=== PATIENT | female | born 1955 | race Caucasian/White ===

== ENCOUNTER 2023-09-25 11:17 | Emergency (ER) | payer OTHER, SELFPAY ==
[2023-09-25 11:18] VITALS: BP 147/100
[2023-09-25 13:07] VITALS: BMI 25.7
[2023-09-25 13:34] LABS: % Basophils 1.2 % (0-2); % Immature Granulocytes 0.3 % (0-0.5); % Lymphocytes 21.5 % (20.5-51.1); % Monocytes 8.2 % (1.7-9.3); % Neutrophils 65.8 % (42.2-75.2); Absolute Basophils 0.1 10^3/uL (0-0.2); Absolute Eosinophils 0.2 10^3/uL (0-0.7); Absolute Lymphocytes 1.6 10^3/uL (1.2-3.4); Absolute Monocytes 0.6 10^3/uL (0.1-0.6); Absolute Neutrophils 4.8 10^3/uL (1.4-6.5); Hematocrit 40.1 % (37.0-47.0); Hemoglobin 13.6 g/dL (12.0-16.0); Mean Corp Hgb Conc. 33.9 g/dL (33.0-37.0); Mean Corpuscular Hgb 32.5 pg (27.0-31.0); Mean Corpuscular Volume 95.9 fL (81.0-99.0); Mean Platelet Volume 9.8 fL (7.4-10.4); Nucleated Red Blood Cells % 0 %; Platelet Count 221 10^3/uL (130-400); Red Blood Cell Count 4.18 10^6/uL (4.20-5.40); White Blood Cell Count 7.3 10^3/uL (4.8-10.8)
[2023-09-25 13:48] LABS: ALT (SGPT) 18 U/L (0-35); AST (SGOT) 26 U/L (14-36); Albumin 4.1 g/dl (3.5-5.0); Alkaline Phosphatase 63 U/L (38-126); Blood Urea Nitrogen 15 mg/dl (7-17); Calcium 9.8 mg/dl (8.4-10.2); Carbon Dioxide 27 mmol/L (22-30); Chloride 107 mmol/L (98-107); Estimated Creatinine Clearance 60 ml/min; Glucose 99 mg/dl (70-99); Lipase 69 U/L (23-300); Potassium 4.1 mmol/L (3.5-5.1); Sodium 139 mmol/L (135-145); Total Bilirubin 0.4 mg/dl (0.2-1.3); Total Protein 6.5 g/dl (6.3-8.2); eGFR > 60.00
--- NOTE | 2023-09-25 13:57 | ED.GENMED ---
History of Present Illness
General
Chief Complaint: Abdominal Symptoms
Time Seen by Provider: 09/25/23 11:56
History of Present Illness
History of Present Illness:
67-year-old female without significant past medical history presenting to the emergency department for generalized abdominal pain and bloating. Patient reports that symptoms have been ongoing for about the past 6 months. Intermittently, she will
eat, followed by bloating, then belching and sometimes vomiting. She discussed with her PCP, however has not had any improvement. She has not tried any medications. 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 Otherwise
denies abdominal surgeries. Denies fever or systemic symptoms. Denies chest pain or difficulty breathing. Denies urinary or complaints. Denies ever seeing a GI doctor for the symptoms. Denies constitutional symptoms such as weight loss or
night sweats. Denies additional acute medical complaints
Phy Exam
Physical Exam
Physical Exam:
General: Well-appearing, no clinical signs of dehydration, nontoxic and in no acute distress
HEENT: protecting airway
Neck: appears supple
CV: Normal heart rate, regular rhythm, no evidence of cyanosis
Resp: No accessory muscle use, no increased work of breathing, lungs clear to auscultation bilaterally
Abd: Soft and non-distended, no tenderness to palpation, normal bowel sounds
Extremities: No deformities, no swelling, no erythema, pulses and sensation intact
Neuro: alert, no focal neurologic deficit
: deferred
Rectal: deferred
Psych: Normal affect
Skin: Intact
Course
Orders/Labs/Results
Orders:
Orders
09/25/23 12:52
CT Abd/pelvis W Iv Cont Urgent
Comment:
Reason For Exam: abdominal bloating x 6 months
09/25/23 13:19
Complete Blood Count/With Diff Urgent
Comprehensive Metabolic Panel Urgent
Lipase Urgent
Abnormal Lab Results
09/25/23
13:19
RBC 4.18 L 10^6/uL
(4.20-5.40)
MCH 32.5 H pg
(27.0-31.0)
09/25/23 13:19
09/25/23 13:19
Vital Signs
Initial and Last Documented VS:
Initial Vital Signs
Temp Pulse Resp BP Pulse Ox
98.5 F 85 18 147/100 95
09/25/23 11:18 09/25/23 11:18 09/25/23 11:18 09/25/23 11:18 09/25/23 11:18
Last Documented Vital Signs
Temp Pulse Resp BP Pulse Ox
98.5 F 85 18 147/100 95
09/25/23 11:18 09/25/23 11:18 09/25/23 11:18 09/25/23 11:18 09/25/23 11:18
MDM/Problems Addressed
MDM/Problems Addressed:
67-year-old female without significant past medical history presenting for generalized abdominal pain and bloating for the past 6 months. Vital signs on arrival are significant for mild hypertension.
On exam, patient is well-appearing, no acute distress or discomfort. Benign cardiac and pulmonary exam. On abdominal exam, no focal reproducible tenderness, soft and nondistended. Symptoms appear consistent with possible hiatal hernia versus
reflux versus GERD. Given duration of symptoms, malignancy is also a consideration. Patient has had no formal workup of her complaints. Will plan for laboratory analysis CT abdominal imaging. Likely plan for ultimate outpatient GI follow-up..
15:30 -labs are unremarkable. CT shows large hiatal hernia, otherwise no acute process. Suspect etiology of patient's symptoms. Feel stable for discharge with interval follow-up with GI. Will provide information. Advised PPI medication. Return
precautions discussed and patient verbalized understanding
*Critical Care Note
Total Time (30-74mins, 75-104mins- exclusive of procedures): Not Applicable
ED Attending Note
-
Portions of this chart may have been created with voice recognition software.� Occasional wrong word or��sound alike� substitutions may have occurred due to the inherent limitations of voice recognition software.
Discharge Plan
Departure
Referrals:
Tal Zapata, [Family Provider] -
Interventions
Interventions:
*Risk Screen - Suicide Last Done: 09/25/23 13:09
*General Assessment Last Done: 09/25/23 13:09
*Neglect/Abuse Screening Last Done: 09/25/23 13:09
ED- Fall Risk Assessment Last Done: 09/25/23 13:09
*ED COVID-19 Vaccine History Last Done: 09/25/23 13:09
ZW-Eeckvz-Whlbkigoms Assessment Last Done: 09/25/23 13:09
Discharge Date and Time
Print Language: [place]
[2023-09-25 15:45] VITALS: BP 168/95
== END 2023-09-25 15:46 | disposition home or self-care (01) ==
LOC: EMR 11:17
PROVIDERS: EMERGENCY PHYSICIAN Student in an Organized Health Care Education/Training Program; FAMILY PHYSICIAN Internal Medicine
DX: K44.9 Diaphragmatic hernia without obstruction or gangrene (principal); R14.0 Abdominal distension (gaseous); I10 Essential (primary) hypertension; Z90.5 Acquired absence of kidney
CPT/HCPCS: 99284; 74177; 80053; 83690; 85025; Q9967

== ENCOUNTER 2023-09-27 13:59 | Emergency (ER) | payer OTHER, SELFPAY ==
[2023-09-27] VITALS (13 sets, daily range): BP systolic 153–237; BP diastolic 98–135
[2023-09-27 14:26] LABS: % Basophils 0.9 % (0-2); % Eosinophils 4.3 % (0-6); % Immature Granulocytes 0.1 % (0-0.5); % Lymphocytes 33.8 % (20.5-51.1); % Monocytes 9.5 % (1.7-9.3); % Neutrophils 51.4 % (42.2-75.2); Absolute Basophils 0.1 10^3/uL (0-0.2); Absolute Eosinophils 0.3 10^3/uL (0-0.7); Absolute Lymphocytes 2.4 10^3/uL (1.2-3.4); Absolute Monocytes 0.7 10^3/uL (0.1-0.6); Absolute Neutrophils 3.6 10^3/uL (1.4-6.5); Hematocrit 43.1 % (37.0-47.0); Hemoglobin 14.9 g/dL (12.0-16.0); Mean Corp Hgb Conc. 34.6 g/dL (33.0-37.0); Mean Corpuscular Volume 95.4 fL (81.0-99.0); Mean Platelet Volume 9.6 fL (7.4-10.4); Nucleated Red Blood Cells % 0 %; Platelet Count 227 10^3/uL (130-400); Red Blood Cell Count 4.52 10^6/uL (4.20-5.40); Red Cell Dist. Width 12.8 % (11.5-14.5)
[2023-09-27 14:38] LABS: ALT (SGPT) 19 U/L (0-35); AST (SGOT) 28 U/L (14-36); Albumin 4.7 g/dl (3.5-5.0); Alkaline Phosphatase 82 U/L (38-126); Blood Urea Nitrogen 10 mg/dl (7-17); Calcium 10.6 mg/dl (8.4-10.2); Carbon Dioxide 30 mmol/L (22-30); Chloride 101 mmol/L (98-107); Glucose 102 mg/dl (70-99); Potassium 3.8 mmol/L (3.5-5.1); Sodium 138 mmol/L (135-145); Total Bilirubin 0.7 mg/dl (0.2-1.3); Total Protein 7.3 g/dl (6.3-8.2); eGFR > 60.00
[2023-09-27 14:49] LABS: Troponin I < 0.012 ng/ml
--- NOTE | 2023-09-27 15:55 | ED.GENMED ---
History of Present Illness
General
Chief Complaint: Blood Pressure Problem
Source: patient and records
Time Seen by Provider: 09/27/23 15:40
History of Present Illness
History of Present Illness:
67yoF with no significant past medical history presenting with her for evaluation of elevated blood pressure. Patient has been having ongoing GI issues x several months. She reports nausea, bloating, and discomfort after eating. She also has
vomiting intermittently. She was seen in ED 2 days ago for these symptoms. She had a CT abdomen at that time which revealed a large hiatal hernia without other acute findings. She was discharged and advised to f/u with GI. She tried to make an
appointment but they are unable to see her until January. She ate hamburger pie for lunch this afternoon. She again developed nausea and an upset stomach after eating this. Her decided to check her blood pressure which was reportedly
225/113 and she decided to come back to the ED. She had an episode of vomiting prior to initial exam and she is now asymptomatic. She denies any chest pain, headache, visual changes. She denies any history of hypertension and is not on any
antihypertensives. Blood pressure at her ED visit 2 days ago was 147/100.
Phy Exam
General Physical Exam
General Presentation: well appearing and no apparent distress
General age: appears stated age
General Skin: warm and dry
General Habitus: normal
General Mental: alert
Cardiovascular Exam
Cardiovascular Exam: regular rate/rhythm and no murmur
Pulmonary Exam
Pulmonary Exam: lungs clear, no respiratory distress, no crackles and no wheezing
Neurological Exam
Neurological Exam: alert and no motor deficits
[place] Coma Scale
Eye Opening: Spontaneous
Verbal Response: Oriented
Motor Response: Obeys Commands
GCS Total Score: 15
Skin Exam
Skin Exam: normal color and warm/dry
Psychiatric Exam
Psychiatric Exam: normal mood/affect
Course
Orders/Labs/Results
Orders:
Orders
09/27/23 14:14
Electrocardiogram (*1) Urgent
Reason for Study: Hypertension, Benign
EKG- Treatment ONCE
09/27/23 14:18
Complete Blood Count/With Diff Urgent
Comprehensive Metabolic Panel Urgent
Troponin I Urgent
09/27/23 15:59
Ondansetron Orally Disint [Zofran Odt (Orally Disintegrating)] 4 mg PO NOW STA
09/27/23 17:12
Electrocardiogram (*1) Urgent
Reason for Study: Abdominal Pain
EKG- Treatment ONCE
09/27/23 17:13
Famotidine [Pepcid] 20 mg IV NOW STA
Pantoprazole [Protonix IV] 40 mg IV NOW STA
09/27/23 17:18
Troponin I Urgent
09/27/23 18:08
Ondansetron Injectable [Zofran] 4 mg IV NOW STA
09/27/23 18:12
Labetalol HCl [Trandate] 10 mg IV NOW STA
09/27/23 19:06
Labetalol HCl [Trandate] 20 mg IV NOW STA
Abnormal Lab Results
09/27/23
14:18
MCH 33.0 H pg
(27.0-31.0)
Absolute Monos (auto) 0.7 H 10^3/uL
(0.1-0.6)
Monocytes % 9.5 H %
(1.7-9.3)
Glucose 102 H mg/dl
(70-99)
Calcium 10.6 H mg/dl
(8.4-10.2)
09/27/23 14:18
09/27/23 14:18
Vital Signs
Initial and Last Documented VS:
Initial Vital Signs
Temp Pulse Resp BP Pulse Ox
98.0 F 76 16 237/128 98
09/27/23 14:10 09/27/23 14:10 09/27/23 14:10 09/27/23 14:10 09/27/23 14:10
Last Documented Vital Signs
Temp Pulse Resp BP Pulse Ox
98.0 F 90 13 153/98 92
09/27/23 14:10 09/27/23 19:45 09/27/23 19:45 09/27/23 19:32 09/27/23 19:45
MDM/Problems Addressed
Differential Diagnosis Includes:
67yoF here with elevated BP. BP was elevated with SBP in the 220s at home. No prior hx of HTN. C/o ongoing GI issues x several months including nausea and indigestion after eating. No CP/SOB. No headache or visual changes. Seen in ED 2 days ago for
her GI symptoms. BP is 237/128 on arrival. Remainder of vitals are normal. Patient is non-toxic appearing. Differential diagnosis includes but is not limited to: hypertensive urgency, hypertensive emergency, asymptomatic hypertension
Initial ED plan: Check cardiac labs and EKG. Will give Zofran and reassess.
*EKG
Interpreted by ED Provider?: Yes
EKG Intrepretation Date: 09/27/23
EKG Intrepretation Time: 16:02
Heart Rate: 79
Rate: normal
Rhythm: sinus
Yeso: normal axis
Interval: normal interval
Ischemia: no ischemia
*Critical Care Note
Total Time (30-74mins, 75-104mins- exclusive of procedures): Not Applicable
Update Note
Update Note:
Labs unremarkable including normal renal function. No ischemic changes on EKG and troponin is normal x 2. Patient with persistent hypertension requiring IV labetalol. Blood pressure improved to 153/90 after labetalol. Patient was ultimately given
Pepcid and Protonix for ongoing indigestion. On reassessment, patient is feeling significantly improved after medications. She is stable for discharge. Will start patient on amlodipine 5mg QD. She was also given prescriptions for Protonix and
Zofran. GI office staff sent a TigerText to help expedite outpatient f/u. Advised close PCP follow-up for blood pressure recheck. ED return precautions discussed. Patient was discharged in stable condition.
ED Attending Note
-
Portions of this chart may have been created with voice recognition software.� Occasional wrong word or��sound alike� substitutions may have occurred due to the inherent limitations of voice recognition software.
Discharge Plan
Departure
Patient Disposition: Home (Routine Discharge)
Date of Disposition: 09/27/23
Time of Disposition: 19:43
Patient with high blood pressure during this ER visit?: Yes
Discharge Problem:
Hypertension, Nausea and vomiting, GERD (gastroesophageal reflux disease)
Instructions: High Blood Pressure (DC)
Prescriptions:
New
pantoprazole 40 mg tablet,delayed release (DR/EC)
40 mg PO DAILY Qty: 30 0RF
amlodipine 5 mg tablet
5 mg PO DAILY Qty: 14 0RF
ondansetron 4 mg tablet,disintegrating
4 mg PO Q6H PRN (Reason: nausea and vomiting) Qty: 20 0RF
Referrals:
Tal Zapata, DO [Family Provider] -
Activity Restrictions/Additional Instructions:
Take amlodipine (blood pressure medication) as prescribed. Take pantoprazole for your stomach. You may also take Pepcid 20mg twice a day as needed. Take Zofran as needed for nausea.
Please follow-up with your family doctor within 1 week for blood pressure recheck as well as gastroenterology.
Return to the ER with any worsening symptoms.
Interventions
Interventions:
*Risk Screen - Suicide Last Done: 09/27/23 15:03
*General Assessment Last Done: 09/27/23 15:03
ED- Fall Risk Assessment Last Done: 09/27/23 15:09
*ED COVID-19 Vaccine History Last Done: 09/27/23 15:03
*Nursing Disposition Last Done: 09/27/23 20:12
ED- Cardiac Assessment Last Done: 09/27/23 15:11
ED- Neurological Assessment Last Done: 09/27/23 15:11
ED- Pulmonary Assessment Last Done: 09/27/23 15:11
Discharge Date and Time
Discharge Date/Time: 09/27/23 20:12
Print Language: PORTUGUESE
[2023-09-27] MEDS: ZOFRAN ODT (ORALLY DISINTEGRATING) 4 MG PO (16:07)
[2023-09-27] MEDS: PEPCID 20 MG IV (17:30)
[2023-09-27] MEDS: PROTONIX IV 40 MG IV (17:30)
[2023-09-27 17:55] LABS: Troponin I < 0.012 ng/ml
[2023-09-27] MEDS: TRANDATE 10 MG IV (18:22)
[2023-09-27] MEDS: ZOFRAN 4 MG IV (18:22)
[2023-09-27] MEDS: TRANDATE 20 MG IV (19:16)
== END 2023-09-27 20:12 | disposition home or self-care (01) ==
LOC: EMR 13:59
PROVIDERS: Physician Assistant; EMERGENCY PHYSICIAN Emergency Medicine; FAMILY PHYSICIAN Internal Medicine
DX: R11.2 Nausea with vomiting, unspecified (principal); I10 Essential (primary) hypertension; K21.9 Gastro-esophageal reflux disease without esophagitis
CPT/HCPCS: 99284; 96374; 96375 ×3; 96376; 80053; 84484; 85025; 93005

== ENCOUNTER → 2023-10-05 06:29 | Day surgery (SDC) | payer OTHER, SELFPAY | LOC: GI 06:29 | PROVIDERS: ATTENDING PHYSICIAN Internal Medicine; FAMILY PHYSICIAN Internal Medicine | DX: R93.3 Abnormal findings on diagnostic imaging of other parts of digestive tract (principal); R14.0 Abdominal distension (gaseous); R11.2 Nausea with vomiting, unspecified; R14.2 Eructation; K44.9 Diaphragmatic hernia without obstruction or gangrene; K31.89 Other diseases of stomach and duodenum; K29.50 Unspecified chronic gastritis without bleeding | CPT/HCPCS: 43239; 88305; 88342 ==

== ENCOUNTER → 2023-10-25 10:14 | Outpatient (REF) | payer OTHER, SELFPAY | LOC: RAD 10:14 | PROVIDERS: ATTENDING PHYSICIAN Surgery; FAMILY PHYSICIAN Internal Medicine | DX: K44.9 Diaphragmatic hernia without obstruction or gangrene (principal) | CPT/HCPCS: 74246 ==

== ENCOUNTER 2023-12-08 06:21 | Day surgery (SDC) | payer OTHER, SELFPAY ==
[2023-12-02 10:52] VITALS: BMI 24.7
[2023-12-02 11:19] LABS: Hematocrit 42.9 % (37.0-47.0); Hemoglobin 14.5 g/dL (12.0-16.0); Mean Corp Hgb Conc. 33.8 g/dL (33.0-37.0); Mean Corpuscular Hgb 33.6 pg (27.0-31.0); Mean Corpuscular Volume 99.3 fL (81.0-99.0); Mean Platelet Volume 10.4 fL (7.4-10.4); Platelet Count 219 10^3/uL (130-400); Red Blood Cell Count 4.32 10^6/uL (4.20-5.40); White Blood Cell Count 5.1 10^3/uL (4.8-10.8)
[2023-12-02 11:42] LABS: Blood Urea Nitrogen 14 mg/dl (7-17); Calcium 9.4 mg/dl (8.4-10.2); Carbon Dioxide 27 mmol/L (22-30); Chloride 101 mmol/L (98-107); Estimated Creatinine Clearance 59 ml/min; Glucose 86 mg/dl (70-99); Potassium 4.8 mmol/L (3.5-5.1); Sodium 140 mmol/L (135-145); eGFR > 60.00
--- NOTE | 2023-12-03 15:58 | VNURNOTE ---
Received notification from [facility] about potential [facility] need.
Home Health Liaison called patient pre-op to discuss [facility] nurse/therapy, visits, schedule and homebound status. Patient would like 'one or two nursing visits.' She said she per pre-op Dr willson, she was told she would be staying overnight at least 1
night in hospital.
Liaison explained that visits at home are typically 1-3x per week to assess and teach medical management. Patient verbalized understanding. She is aware that [facility] will contact them for start of care in 1-2 days after discharge from . [facility]
referral completed in Care Port. Will watch if DC plans change.
[2023-12-08] VITALS (14 sets, daily range): BP systolic 158–169; BP diastolic 90–101; BMI 24.7
[2023-12-08] MEDS: TYLENOL 1000 MG PO (10:01)
[2023-12-08] MEDS: NORMOSOL-R/PLASMALYTE-A 1000 IV ×2 (10:13→15:40)
--- NOTE | 2023-12-08 14:35 | W.IMMPOSTOP ---
Addendum entered and electronically signed by Scott Kim MD 12/08/23 15:17:
[facility]#[id number]
Original Note:
Surgical Immed Post Op Note
-
Primary Surgeon: Judy
Assisting Surgeon: LILI Murphy
Pre-op Diagnosis: Paraesophageal hernia
Post-op Diagnosis: Paraesophageal hernia
Procedure Performed: Laparoscopic paraesophageal hernia repair with fundoplication, lysis of adhesions
Anesthesia Type: General
Specimen / Cultures: None
Estimated Blood Loss: 7 cc
Complications: None
Operative Findings:
1. Omental adhesions from prior kidney donation and hernia repair, lysis performed
2. Large type III PEH containing 40% of stomach
3. > 3 cm esophageal mobilization, no pleural violation, bl vagi identified
4. Posterior crural closure using 0 silk (2 pledget, 1 non)
5. Toupet fundoplication over 54 Fr Bougie
[2023-12-08] MEDS: OFIRMEV 100 IV ×2 (15:39→21:36)
[2023-12-08] MEDS: LOPRESSOR 5 MG IV (20:25)
[2023-12-09] MEDS: NORMOSOL-R/PLASMALYTE-A 1000 IV ×2 (01:17→12:03)
[2023-12-09] MEDS: OFIRMEV 100 IV ×2 (02:59→10:11)
[2023-12-09 03:15] VITALS: BP 160/89
[2023-12-09 06:17] LABS: Hematocrit 39.6 % (37.0-47.0); Hemoglobin 13.5 g/dL (12.0-16.0); Mean Corp Hgb Conc. 34.1 g/dL (33.0-37.0); Mean Corpuscular Hgb 32.4 pg (27.0-31.0); Mean Platelet Volume 10.6 fL (7.4-10.4); Platelet Count 212 10^3/uL (130-400); Red Blood Cell Count 4.17 10^6/uL (4.20-5.40); Red Cell Dist. Width 11.9 % (11.5-14.5); White Blood Cell Count 9.8 10^3/uL (4.8-10.8)
[2023-12-09 06:47] LABS: Blood Urea Nitrogen 8 mg/dl (7-17); Calcium 8.7 mg/dl (8.4-10.2); Carbon Dioxide 23 mmol/L (22-30); Chloride 100 mmol/L (98-107); Estimated Creatinine Clearance 67 ml/min; Glucose 98 mg/dl (70-99); Potassium 4.2 mmol/L (3.5-5.1); Sodium 137 mmol/L (135-145); eGFR > 60.00
[2023-12-09 07:15] VITALS: BP 168/80
--- NOTE | 2023-12-09 09:55 | W.PN.GS2 ---
Today's Communication / Plan
-
-- Clears --> fulls -- dysphagia soft
-- Pain control: Tylenol, Toradol, IV Dilaudid PRN
-- Continue IVF
-- Home BP medication
-- DVT: Lovenox
-- DC today versus tomorrow pending progression
Assessment / Plan
-
Patient is a 68 yo F POD#1 s/p laparoscopic paraesophageal hernia repair with Toupet fundoplication
AVSS
Labs reviewed, no concerns
Recovering well. No postoperative concerns. Dietary education was provided
-- Clears --> fulls -- dysphagia soft
-- Pain control: Tylenol, Toradol, IV Dilaudid PRN
-- Continue IVF
-- Home BP medication
-- DVT: Lovenox
-- DC today versus tomorrow pending progression
Subjective Data
-
Date of Service: December 09, 2023
No concerns or complaints. Pain well-controlled. Denies any dysphagia, nausea, vomiting. No reflux symptoms. Afebrile. Voiding. Ambulating.
Objective Data
-
Intake and Output
12/08/23 12/09/23 12/10/23
06:59 06:59 06:59
Intake Total 1457.3 / 1457.3
Balance 1457.3 / 1457.3
Intake:
IV fluids (Total) 1457.3 / 1457.3
Normosol 157.3 / 157.3
Ofirmev 100 / 100
Other:
Number of approximated SMALL 1
amounts of urine
Number of approximated MODERATE 1 1
amounts of urine
Number of approximated LARGE 1
amounts of urine
Vital Signs
Temp Pulse Resp BP Pulse Ox
97.8 F 92 16 168/80 96
12/09/23 07:15 12/09/23 07:15 12/09/23 07:15 12/09/23 07:15 12/09/23 07:15
Lab Results
12/09/23 05:03
12/09/23 05:03
Calcium 8.7 mg/dl (8.4-10.2) 12/09/23 05:03
Physical Exam
-
Gen: NAD
Abd: soft, NT/ND, non-peritoneal, incisions c/d/i - no erythema or drainage, mild ecchymosis at 12 mm port
[2023-12-09] MEDS: NORVASC 5 MG PO (10:09)
[2023-12-09] MEDS: LOPRESSOR 5 MG IV (10:11)
[2023-12-09 11:25] VITALS: BP 128/77
[2023-12-09 15:47] VITALS: BP 132/83
--- NOTE | 2023-12-09 16:05 | CM ---
Met with patient at bedside; initial assessment completed
Pharmacy verified: [facility] @ [address] [place] [address]
Patient lives with and 36 yr old son in a one floor mobile home; bath has tub w/shower; grab bar in tub
PLOF: independent with ambulation, stairs and ADLs; retired; drives
NO DME
NO SNF or Home Health utilization
Family member will provide transport home
Plan: discharge to home when medically stable with assistance from family if needed; no needs anticipated
[2023-12-09] MEDS: LOVENOX 40 MG SC (17:08)
[2023-12-09 19:19] VITALS: BP 144/96
== END 2023-12-09 19:50 | disposition home or self-care (01) ==
LOC: SDS 06:21
PROVIDERS: ATTENDING PHYSICIAN Surgery; FAMILY PHYSICIAN Internal Medicine
DX: K44.9 Diaphragmatic hernia without obstruction or gangrene (principal)
CPT/HCPCS: 43281; 36415; 80048; 85027; 93005; J1610

== ENCOUNTER → 2024-08-01 10:40 | Outpatient (REF) | payer OTHER, SELFPAY | LOC: RAD 10:40 | PROVIDERS: ATTENDING PHYSICIAN Hospitalist | DX: Z13.820 Encounter for screening for osteoporosis (principal); Z78.0 Asymptomatic menopausal state; M85.89 Other specified disorders of bone density and structure, multiple sites | CPT/HCPCS: 77080 ==